=== PATIENT | female | born 1985 | race African-American/Black ===

== ENCOUNTER 2016-07-25 06:17 | Inpatient (IN) | payer OTHER ==
[2016-07-25] MEDS ORDERED: NS 50 ML IV + SPIKE MINIBAG* 50 ML IV ONE (06:34)
[2016-07-25] MEDS ORDERED: ANCEF VIAL 1 GM ONE (06:34)
[2016-07-25] MEDS ORDERED: LR 1000 ML IV 1,000 ML IV ONE (06:34)
[2016-07-25] MEDS ORDERED: DURAMORPH ONE (06:59)
[2016-07-25] MEDS ORDERED: D5 1/2 NS 1000 ML 1,000 ML IV SCH ×2 (07:17→15:17)
[2016-07-25] MEDS ORDERED: ANCEF VIAL 1 GM 1 GM in NS 50 ML IV + SPIKE MINIBAG* 50 ML IV PRN (07:17)
[2016-07-25] MEDS ORDERED: D5 1/2 NS 1000ML W PITOCIN 20 U/L 1,000 ML IV ONE (07:45)
[2016-07-25] MEDS ORDERED: NS IRRIGATION 1000 ML 1,000 ML IR ONE (08:07)
[2016-07-25] MEDS ORDERED: DILAUDID INJ ONE (08:41)
[2016-07-25] MEDS: DILAUDID INJ IVP PRN ×2 (08:42→08:50)
[2016-07-25] MEDS ORDERED: REGLAN INJ 10 MG VIAL IVP PRN ×2 (08:45→09:00)
[2016-07-25] MEDS ORDERED: BENADRYL INJ 50 MG VIAL IVP PRN ×2 (08:45→09:00)
[2016-07-25] MEDS ORDERED: ZOFRAN INJ 4 MG VIAL IVP PRN ×2 (08:45→09:00)
[2016-07-25] MEDS ORDERED: PHENERGAN INJ 25 MG IVP PRN (08:45)
[2016-07-25] MEDS ORDERED: D5 1/2 NS 1000 ML 1,000 ML with PITOCIN 20 UNITS IV SCH ×2 (09:00)
[2016-07-25] MEDS ORDERED: ADACEL TDaP IM ONE (09:00)
[2016-07-25] MEDS ORDERED: PERCOCET TAB 5/325 MG PO PRN (09:00)
[2016-07-25] MEDS ORDERED: DILAUDID INJ IVP ONE ×2 (09:02→09:07)
[2016-07-25] MEDS ORDERED: EPHEDRINE SULFATE INJ ONE (09:49)
[2016-07-25] MEDS ORDERED: DIPRIVAN VIAL ONE (09:49)
[2016-07-25] MEDS ORDERED: VERSED ONE (09:49)
[2016-07-25] MEDS: PRENATAL PLUS PO SCH (09:52)
[2016-07-25] MEDS: ZANTAC PO SCH ×2 (09:52→20:00)
[2016-07-25] MEDS: TORADOL 30 MG VIAL IVP PRN (15:31)
[2016-07-25] MEDS ORDERED: FERROUS SULFATE PO SCH (17:00)
[2016-07-25] MEDS: FERROUS SULFATE PO SCH (18:27)
[2016-07-25] MEDS: NARCAN INJ IVP PRN (20:00)
[2016-07-26] MEDS: TORADOL 30 MG VIAL IVP PRN (02:21)
[2016-07-26 05:28] LABS: HEMATOCRIT 26.8 % (36.0-47.0)
[2016-07-26] MEDS: NARCAN INJ IVP PRN (07:08)
[2016-07-26] MEDS ORDERED: MOTRIN TAB 800 MG PO PRN (07:52)
[2016-07-26] MEDS: FERROUS SULFATE PO SCH ×2 (09:20→17:29)
[2016-07-26] MEDS: ZANTAC PO SCH ×2 (09:20→20:16)
[2016-07-26] MEDS: COLACE CAP 100 MG PO SCH ×2 (09:20→20:16)
[2016-07-26] MEDS: PRENATAL PLUS PO SCH (09:20)
[2016-07-26] MEDS: PERCOCET TAB 5/325 MG PO PRN ×2 (12:10→19:43)
[2016-07-26] MEDS: MYLICON TAB 80 MG CHEW PO PRN (12:10)
[2016-07-26] MEDS: BACTROBAN OINT TOP SCH ×2 (14:18→23:41)
[2016-07-26] MEDS: BENADRYL CAP/TAB 25 MG PO PRN ×2 (15:36→19:43)
[2016-07-27] MEDS: MYLICON TAB 80 MG CHEW PO PRN (02:33)
[2016-07-27] MEDS: PERCOCET TAB 5/325 MG PO PRN ×2 (02:33→09:01)
[2016-07-27] MEDS: BENADRYL CAP/TAB 25 MG PO PRN (04:59)
[2016-07-27] MEDS: BACTROBAN OINT TOP SCH (04:59)
[2016-07-27] MEDS ORDERED: DEPO-PROVERA CONTRACEPTIVE INJ IM ONE (07:18)
[2016-07-27 08:16] VITALS: BP 123/82
[2016-07-27] MEDS: FERROUS SULFATE PO SCH (09:00)
[2016-07-27] MEDS: PRENATAL PLUS PO SCH (09:00)
[2016-07-27] MEDS: COLACE CAP 100 MG PO SCH (09:01)
[2016-07-27] MEDS: ZANTAC PO SCH (09:01)
== END 2016-07-27 13:40 | disposition home or self-care (01) | DRG 983 ==
LOC: LD 06:17 → MED/SURG 09:12
PROVIDERS: ADMIT Specialist; ATTEND Specialist
PROC: 3E0234Z Introduction of Serum, Toxoid and Vaccine into Muscle, Percutaneous Approach (ICD-10-PCS; 2016-07-25)
PROC: 10D00Z1 Extraction of Products of Conception, Low, Open Approach (ICD-10-PCS; principal; 2016-07-25 07:30)
DX: N85.8 Other specified noninflammatory disorders of uterus (principal); Z37.0 Single live birth; O34.211 Maternal care for low transverse scar from previous cesarean delivery; O40.3XX0 Polyhydramnios, third trimester, not applicable or unspecified; O99.02 Anemia complicating childbirth; O99.824 Streptococcus B carrier state complicating childbirth; R51 Headache; Z3A.38 38 weeks gestation of pregnancy; B95.1 Streptococcus, group B, as the cause of diseases classified elsewhere; Z23 Encounter for immunization; D50.8 Other iron deficiency anemias
CPT/HCPCS: 36415; 85014; 85018; A4216; A4222; S0197; J0690; J1050; J1170; J1200; J1885; J2250; J2310; J2405; J3490; J7120

== ENCOUNTER 2017-01-25 14:29 | Emergency (ER) | payer SELFPAY ==
[2017-01-25 14:35] VITALS: BP 117/77; BMI 30.2
[2017-01-25] MEDS ORDERED: TYLENOL #3 TAB (W/CODEINE) PO ONE ×2 (15:55→15:56)
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
== END 2017-01-25 16:18 | disposition home or self-care (01) ==
LOC: ER 15:01
DX: L02.93 Carbuncle, unspecified (principal)
CPT/HCPCS: 99282

== ENCOUNTER 2017-05-16 21:50 | Emergency (ER) | payer SELFPAY ==
[2017-05-16 21:58] VITALS: BP 121/90; BMI 35.1
--- NOTE | 2017-05-16 22:04 | DR.GENAD ---
HPI - PCP Primary Care Physician: nfd - Complaint/Symptoms Chief Complaint Doctors Comments: Patient admits to vaginal bleeding for 2.5 weeks has not seen a physician. She denies or recent . Chief Complaint:: pt states" I been bleeding for 2 and a half weeks and i hurt in my vagina and the bottom of my stomach hurts" - Source History Provided: Patient - Mode of Arrival Mode of Arrival: Ambulatory - Timing Onset of Chief Complaint: 05/04/17 PMH - PMH Past Medical History: Yes Past Medical History: Hypertension Past Surgical History: Yes Surgical History: Past Surgical History Comment: skin graft from [place] waist down - Family History History of Family Medical Conditions: No (adopted) Family Medical History: Diabetes Mellitus, Hypertension - Social History Type of Tobacco Use: Cigarettes Does any household member use tobacco: No Alcohol Use: None Do you use any recreational Drugs:: No Lives With: Family Lives Where: Home - infectious screening In the last 2 months have you had wt loss of >10#?: NO Have you had fever, night sweats or hemotysis?: No Have you traveled outside the country in the last 6 months?: No Isolation: Standard ROS - Review of Systems Eyes: No Symptoms Reported ENTM: No Symptoms Reported Respiratoy: No Symptoms Reported Cardiovascular: No Symptoms Reported Gastrointestinal/Abdominal: No Symptoms Reported Genitourinary: No Symptoms Reported Neurological: No Symptoms Reported Musculoskeletal: No Symptoms Reported Integumentary: No Symptoms Reported Hematologic/Lymphatic: No Symptoms Reported Endocrine: No Symptoms Reported Psychiatric: No Symptoms Reported All Other Systems: Reviewed and Negative PE - Vital Signs Vitals: Temperature 99.1 F Pulse Rate 91 Respiratory Rate 18 Blood Pressure [Right Arm] 123/82 Blood Pressure [Left Arm] 125/69 Blood Pressure 121/90 O2 Sat by Pulse Oximetry 100 - General Limitations: No Limitations General Appearance: Alert, In No Apparent Distress - Head Head Exam: Normal Inspection, Atraumatic - Eyes Eye exam: Normal Appearance, PERRL, EOMI - ENT ENT Exam: Normal Exam, Normal Oropharynx External Ear Exam: Normal External Inspection TM/Canal Exam: Bilateral Normal Nose Exam: Normal Nose Exam Mouth Exam: Normal Inspection Throat Exam: Normal Inspection - Neck Neck Exam: Normal Inspection, Full ROM - Chest Chest Inspection: Normal Inspection - Respiratory Respiratory Exam: Normal Lung Sounds Bilat Respiratory Exam: Bilateral Clear to Auscultation - Cardiovascular Cardiovascular Exam: Regular Rate, Normal Rhythm - Abdominal Exam Abdominal Exam: Normal Inspection, Normal Bowel Sounds Abdominal Tenderness: negative: RUQ, RLQ, LUQ, LLQ, Epigastrium, Suprapubic, Diffuse, Mild, Moderate, Severe, Other - Extremities Extremities Exam: Normal Inspection, Full ROM - Back Back Exam: Normal Inspection, Full ROM - Neurologic Neurological Exam: Alert, Oriented X3, CN II-XII Intact - Psychiatric Psychiatric Exam: Normal Affect, Normal Mood - Skin Skin Exam: Warm, Dry, Intact ROR - Labs Reviewed Result Diagrams: 05/16/17 22:05 05/16/17 22:05 Laboratory: WBC 8.3 X10^3/uL (3.6-10.0) 05/16/17 22:05 RBC 4.19 X10^6/uL (3.5-5.4) 05/16/17 22:05 Hgb 11.6 g/dL (12.0-16.0) L 05/16/17 22:05 Hct 35.4 % (36.0-47.0) L 05/16/17 22:05 MCV 84.4 fL (80.0-100.0) 05/16/17 22:05 MCH 27.7 pg (27.0-34.0) 05/16/17 22:05 MCHC 32.8 g/dL (33.0-35.0) L 05/16/17 22:05 RDW 14.9 % (11.6-16.5) 05/16/17 22:05 Plt Count 310 X10^3/uL (150.0-450.0) 05/16/17 22:05 MPV 8.5 fL (7.4-11.0) 05/16/17 22:05 Neut % 56.7 % (42.0-75.0) 05/16/17 22:05 Lymph % 30.2 % (21.0-51.0) 05/16/17 22:05 [place] % 6.2 % (0.0-13.0) 05/16/17 22:05 Eos % 5.7 % (0.9-2.9) H 05/16/17 22:05 Baso % 1.2 % (0.2-1.0) H 05/16/17 22:05 Neut # 4.7 x10^3/uL (2.2-4.8) 05/16/17 22:05 Lymph # 2.5 X10^3/uL (1.3-2.9) 05/16/17 22:05 [place] # 0.5 x10^3/uL (0.3-0.8) 05/16/17 22:05 Eos # 0.5 x10^3/uL (0.0-0.2) H 05/16/17 22:05 Baso # 0.1 X10^3/uL (0.0-0.1) 05/16/17 22:05 Absolute Nucleated RBC 0.1 /100WBC 05/16/17 22:05 Sodium 139 mmol/L (136-145) 05/16/17 22:05 Corrected Sodium TNP 05/16/17 22:05 Potassium 4.1 mmol/L (3.5-5.1) 05/16/17 22:05 Chloride 107 mmol/L (98-107) 05/16/17 22:05 Carbon Dioxide 25.0 mmol/L (21-32) 05/16/17 22:05 BUN 14 mg/dL (7-18) 05/16/17 22:05 Creatinine 0.58 mg/dL (0.55-1.02) 05/16/17 22:05 Est GFR (MDRD) Af Amer > 60 (>60) 05/16/17 22:05 Est GFR (MDRD) Non-Af > 60 (>60) 05/16/17 22:05 Glucose 103 mg/dL (65-99) H 05/16/17 22:05 Calcium 8.5 mg/dL (8.5-10.1) 05/16/17 22:05 Corrected Calcium TNP 05/16/17 22:05 Total Bilirubin 0.20 mg/dL (0.2-1.0) 05/16/17 22:05 AST 9 Units/L (15-37) L 05/16/17 22:05 ALT 17 Units/L (12-78) 05/16/17 22:05 Alkaline Phosphatase 81 Units/L (46-116) 05/16/17 22:05 Total Protein 7.5 g/dL (6.4-8.2) 05/16/17 22:05 Albumin 3.5 g/dL (3.4-5.0) 05/16/17 22: Globulin 4.0 g/dL (2.5-4.5) 05/16/17 22: Albumin/Globulin Ratio 0.9 Ratio (1.1-2.1) L 05/16/17 22: HCG, Qual Negative <10 mIU/mL 05/16/17 22: Specimen Type Clean catch urine 05/16/17: Urine Color Bloody (YELLOW) 05/16/17: Urine Appearance Cloudy (CLEAR) 05/16/17: Urine pH 7.0 (5.0 - 8.0) 05/16/17: Ur Specific [place] 1.010 (1.000-1.030) 05/16/17: Urine Protein 2+ (NEGATIVE) 05/16/17: Urine Glucose (UA) Negative (NEGATIVE) 05/16/17: Urine Ketones Negative (NEGATIVE) 05/16/17: Urine Occult Blood 5+ (NEGATIVE) 05/16/17: Urine Nitrite Negative (NEGATIVE) 05/16/17: Urine Bilirubin Negative (NEGATIVE) 05/16/17: Urine Urobilinogen 1+ (NORMAL) 05/16/17: Ur Leukocyte Esterase 1+ (NEGATIVE) 05/16/17 22:33 Urine RBC Tntc /HPF (NEGATIVE) 05/16/17 22:33 Urine WBC 0-2 /HPF (NEGATIVE) 05/16/17:33 Ur Squamous Epith Cells Many /HPF (NEGATIVE) 05/16/17: Urine Bacteria Trace /HPF (NEGATIVE) 05/16/17 22: Ur Culture Indicated? No/not indicated 05/16/17:33 - XRAY XRAY Interpreted by: Radiologist (Ct: Abd/Pel:No acute skeletal abnormality identified. Evaluation is limited w/o contrast.Small calcified gallstone is noted, without evidence for cholecystitis. Within noncontrast limitations, the liver, spleen,stomach,duodenum,pancreas, adrenals and kidneys are unremarkable, No ureteral stones are identified. A few scattered noninflamed distal colonic diverticula are noted. No significant bowel thickening or dilatation of the lower GI tract is observed. The appendix is normal. The uterus and ovaries are noted. No large pelvic mass or collection identified. The urinary bladder and rectum are unremarkable. No free fluid or adenopathy identified; Impression : No etiology for patient's symptoms identified. Consider pelvic ultrasound for further evaluation of the patients symptoms. Diverticulosis, Cholelithiasis) - Diagnosis Discharge Problem: DUB (dysfunctional uterine bleeding) Diverticulosis Qualifiers: Diverticulosis site: diverticulosis of small intestine Diverticulosis bleeding : diverticulosis without bleeding Qualified Code(s): K57.10 - Diverticulosis of small intestine without perforation or abscess without bleeding Cholelithiasis Qualifiers: Cholelithiasis location: gallbladder Cholecystitis presence: without cholecystitis Biliary obstruction: without biliary obstruction Qualified Code(s) : K80.20 - Calculus of gallbladder without cholecystitis without obstruction - Discharge Plan Condition: Stable - Follow ups/Referrals Follow ups/Referrals: NFD,None [Primary Care Provider] - 3 days - Instructions
[2017-05-16 22:23] LABS: BASOPHILS # (AUTO) 0.1 X10^3/uL (0.0-0.1); BASOPHILS % (AUTO) 1.2 % (0.2-1.0); EOSINOPHILS # (AUTO) 0.5 x10^3/uL (0.0-0.2); EOSINOPHILS % (AUTO) 5.7 % (0.9-2.9); HEMATOCRIT 35.4 % (36.0-47.0); HEMOGLOBIN 11.6 g/dL (12.0-16.0); LYMPHOCYTES # (AUTO) 2.5 X10^3/uL (1.3-2.9); LYMPHOCYTES % (AUTO) 30.2 % (21.0-51.0); MEAN CORPUSCULAR HEMOGLOBIN 27.7 pg (27.0-34.0); MEAN CORPUSCULAR HGB CONC 32.8 g/dL (33.0-35.0); MEAN CORPUSCULAR VOLUME 84.4 fL (80.0-100.0); MEAN PLATELET VOLUME 8.5 fL (7.4-11.0); MONOCYTES # (AUTO) 0.5 x10^3/uL (0.3-0.8); MONOCYTES % (AUTO) 6.2 % (0.0-13.0); NEUTROPHILS # (AUTO) 4.7 x10^3/uL (2.2-4.8); NEUTROPHILS % (AUTO) 56.7 % (42.0-75.0); PLATELET COUNT 310 X10^3/uL (150.0-450.0); RED BLOOD COUNT 4.19 X10^6/uL (3.5-5.4); RED CELL DISTRIBUTION WIDTH 14.9 % (11.6-16.5); WHITE BLOOD COUNT 8.3 X10^3/uL (3.6-10.0)
[2017-05-16 22:33] LABS: ALANINE AMINOTRANSFERASE 17 Units/L (12-78); ALBUMIN 3.5 g/dL (3.4-5.0); ALKALINE PHOSPHATASE 81 Units/L (46-116); ASPARTATE AMINO TRANSFERASE 9 Units/L (15-37); BLOOD UREA NITROGEN 14 mg/dL (7-18); CALCIUM 8.5 mg/dL (8.5-10.1); CHLORIDE 107 mmol/L (98-107); CREATININE 0.58 mg/dL (0.55-1.02); SODIUM 139 mmol/L (136-145); TOTAL PROTEIN 7.5 g/dL (6.4-8.2); eGFR BLACK RACES > 60 (>60); eGFR NON BLACK RACES > 60 (>60)
[2017-05-16 22:38] LABS: SERUM PREGNANCY TEST, QUAL NEGATIVE <10 mIU/mL
[2017-05-16 22:49] LABS: BILIRUBIN,URINE NEGATIVE (NEGATIVE); BLOOD/HEMOGLOBIN,URINE 5+ (NEGATIVE); GLUCOSE, URINE NEGATIVE (NEGATIVE); KETONES,URINE NEGATIVE (NEGATIVE); LEUKOCYTE ESTERASE ,URINE 1+ (NEGATIVE); NITRITES,URINE NEGATIVE (NEGATIVE); PROTEIN,URINE 2+ (NEGATIVE); UROBILINOGEN,URINE 1+ (NORMAL)
[2017-05-16 22:52] LABS: APPEARANCE,URINE CLOUDY (CLEAR); COLOR,URINE BLOODY (YELLOW); RBC,URINE TNTC /HPF (NEGATIVE)
[2017-05-16 22:53] LABS: BACTERIA,URINE TRACE /HPF (NEGATIVE); SQUAMOUS EPITHELIAL CELL,UR MANY /HPF (NEGATIVE)
[2017-05-16] MEDS ORDERED: MORPHINE SULFATE INJ 4 MG IVP ONE (23:01)
[2017-05-16] MEDS ORDERED: MORPHINE SULFATE INJ 4 MG ONE (23:02)
[2017-05-16] MEDS ORDERED: NS 100 ML IV 100 ML IV ONE (23:10)
[2017-05-16] MEDS ORDERED: MORPHINE SULFATE INJ 4 MG IM ONE (23:42)
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
--- NOTE | 2017-05-17 02:01 | US ---
Pelvic ultrasound Indication: Abdominal pain, vaginal bleeding Comparison: CT abdomen and pelvis from the same day. No previous pelvic ultrasound available. Technique: Sonographic images of the pelvis were obtained transabdominally. The uterus measures 6.3 x 4.3 x 4.9 cm. The endometrial thickness is 2 mm. Small simple appearing appearing cysts/follicles are noted within both ovaries, within normal limits for patient age. The right ovary measures 2.8 x 2.5 x 3.3 cm in the left ovary measures 3.9 x 2.9 x 2 .9 cm. Doppler flow was demonstrated bilaterally. No pelvic free fluid was visualized. Impression: Essentially unremarkable pelvic ultrasound. Reported By:
== END 2017-05-17 02:36 | disposition home or self-care (01) ==
LOC: ER 21:50
DX: N93.8 Other specified abnormal uterine and vaginal bleeding (principal); K57.10 Diverticulosis of small intestine without perforation or abscess without bleeding; K80.20 Calculus of gallbladder without cholecystitis without obstruction
CPT/HCPCS: 36415; 74176; 76856; 80053; 81001; 84703; 85025; 96372; 99282; 99284; A4222; J2270

== ENCOUNTER 2024-01-08 22:37 | Inpatient (IN) ==
[~2024-01-08 22:37] MED LIST: ZEMURON 50 MG VIAL ONE
[2024-01-08] MEDS ORDERED: NS 1,000 ML IV 1,000 ML ONE ×2 (22:45)
[2024-01-08] MEDS: NS 1,000 ML IV 1,000 ML IV ONE ×2 (22:47→23:44)
[2024-01-08] MEDS ORDERED: AMIDATE INJ 40 MG VIAL ONE (22:50)
[2024-01-08] MEDS ORDERED: QUELICIN (OR ANECTINE) ONE ×2 (22:51→23:18)
[2024-01-08] MEDS ORDERED: VERSED ONE (22:55)
[2024-01-08] MEDS: VERSED IVP ONE ×3 (22:58→23:32)
[2024-01-08] MEDS: QUELICIN (OR ANECTINE) IVP ONE ×2 (22:59→23:20)
[2024-01-08] MEDS ORDERED: NS 250 ML IV 250 ML IV ONE (23:08)
[2024-01-08 23:35] LABS: HEMOGLOBIN 10.8 g/dL (12.0-16.0); MEAN CORPUSCULAR HGB CONC 31.7 g/dL (33.0-35.0); MEAN CORPUSCULAR VOLUME 86.9 fL (80.0-100.0)
[2024-01-08 23:38] LABS: BASOPHILS # (AUTO) 0.1 X10^3/uL (0.0-0.1); BASOPHILS % (AUTO) 0.6 % (0.2-1.0); EOSINOPHILS # (AUTO) 0.2 x10^3/uL (0.0-0.2); HEMATOCRIT 34.1 % (36.0-47.0); LYMPHOCYTES # (AUTO) 6.8 X10^3/uL (1.3-2.9); MEAN CORPUSCULAR HEMOGLOBIN 27.6 pg (27.0-34.0); MEAN PLATELET VOLUME 8.9 fL (7.4-11.0); MONOCYTES # (AUTO) 0.5 x10^3/uL (0.3-0.8); MONOCYTES % (AUTO) 4.3 % (0.0-13.0); NEUTROPHILS # (AUTO) 4.5 x10^3/uL (2.2-4.8); NEUTROPHILS % (AUTO) 37.1 % (42.0-75.0); PLATELET COUNT 302 X10^3/uL (150.0-450.0); RED BLOOD COUNT 3.92 X10^6/uL (3.5-5.4); RED CELL DISTRIBUTION WIDTH 16.8 % (11.6-16.5); WHITE BLOOD COUNT 12.1 X10^3/uL (3.6-10.0)
[2024-01-08 23:39] LABS: ALANINE AMINOTRANSFERASE 14 Units/L (12-78); ALBUMIN 3.4 g/dL (3.4-5.0); ALKALINE PHOSPHATASE 92 Units/L (46-116); ASPARTATE AMINO TRANSFERASE 11 Units/L (15-37); BLOOD UREA NITROGEN 7 mg/dL (7-18); CALCIUM 8.3 mg/dL (8.5-10.1); CHLORIDE 103 mmol/L (98-107); COR NA(FOR HYPERGLY) 141 mmol/L (136-145); CREATININE 1.01 mg/dL (0.55-1.02); GLUCOSE 188 mg/dL (65-99); SODIUM 139 mmol/L (136-145); eGFR NON BLACK RACES > 60 (>60)
[2024-01-08 23:40] LABS: INR 1.17 (0.8-1.3)
[2024-01-08 23:41] LABS: CARBON DIOXIDE 13.9 mmol/L (21-32)
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
[2024-01-09] MEDS: DECADRON INJ ONE (00:08)
[2024-01-09] MEDS: FENTANYL VIAL INJ 100 mcg ONE (00:08)
[2024-01-09] MEDS: ZEMURON 100 MG VIAL ONE (00:08)
[2024-01-09] MEDS: BETADINE SOLN ONE (00:08)
[2024-01-09 00:16] LABS: BILIRUBIN,URINE NEGATIVE (NEGATIVE); BLOOD/HEMOGLOBIN,URINE 1+ (NEGATIVE); GLUCOSE, URINE 3+ (NEGATIVE); KETONES,URINE 1+ (NEGATIVE); LEUKOCYTE ESTERASE ,URINE NEGATIVE (NEGATIVE); NITRITES,URINE NEGATIVE (NEGATIVE); PROTEIN,URINE 4+ (NEGATIVE); UROBILINOGEN,URINE 1+ (NORMAL)
[2024-01-09] MEDS: NS 1,000 ML IV 1,000 ML ONE (00:30)
[2024-01-09 00:42] LABS: APPEARANCE,URINE CLEAR (CLEAR); BACTERIA,URINE TRACE /HPF (NEGATIVE); COLOR,URINE PALE YELLOW (YELLOW); HYALINE CASTS, URINE FEW /LPF (NEGATIVE); RBC,URINE 0-2 /HPF (0-3); SQUAMOUS EPITHELIAL CELL,UR FEW /HPF (NEGATIVE)
[2024-01-09] MEDS: NS 100 ML IV 100 ML ONE (00:45)
[2024-01-09] MEDS: ANCEF VIAL 1 GRAM ONE (00:45)
[2024-01-09] MEDS: BACTROBAN TOPICAL OINT ONE (00:47)
[2024-01-09] MEDS: LR 1,000 ML IV 1,000 ML IV ONE (00:50)
[2024-01-09 00:58] VITALS: O2SAT 100
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
--- NOTE | 2024-01-09 01:07 | RAD ---
PROCEDURE: Chest X-ray 1 View. HISTORY: CENTRAL LINE PLACEMENT ; HTN RICKY . TECHNIQUE: AP view. COMPARISON: January 08 this year. TECHNICAL QUALITY: Satisfactory. FINDINGS: Left internal jugular central venous line placement with the tip in the innominate vein near the midl ine of the chest. Endotracheal tube remains in the right mainstem bronchus and repositioning more pr oximally 6 cm recommended. NG tube off the bottom of the exam previously documented in the stomach. Normal-sized heart. Pneumomediastinum with air present both upper and lower mediastinum. Normal central vascularity. Interval moderate atelectasis left base. No definite pneumothorax or pleural fluid. No acute bony abnormality. Bilateral subcu air involving chest wall and lower neck greatest on the left IMPRESSION: 1. Good right internal jugular central line placement with no definite pneumothorax. 2. Continued low endotracheal tube and repositioning more proximally 6 cm recommended. 3. Increasing atelectasis left base. 4. Bilateral subcutaneous air. THIS IS AN ELECTRONICALLY VERIFIED FINAL REPORT 01/09/2024 1:03 AM - Electronically signed by Filiberto Sarmiento MD
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
[2024-01-09] MEDS ORDERED: HYDROGEN PEROXIDE 3% ONE (01:15)
[2024-01-09] MEDS ORDERED: PRECEDEX 400 MCG/100 ML *PREMIX 400 MCG/100 ML INFUS..BTL IV ONE (01:16)
[2024-01-09] MEDS: PRECEDEX 400 MCG/100 ML *PREMIX 400 MCG/100 ML INFUS..BTL IV PRN (01:31)
[2024-01-09] MEDS: LR 1,000 ML IV 1,000 ML IV SCH (01:31)
[2024-01-09 01:46] LABS: ABG BASE EXCESS -5.9 mmol/L (-2.0-2.0); ABG HCO3 20.2 mmol/L (22-26)
[2024-01-09 01:47] LABS: ABG ALLEN TEST POS
[2024-01-09] MEDS ORDERED: SALINE 3% 15 ML NEB TX ONE ×2 (02:09→03:56)
[2024-01-09] MEDS ORDERED: NS 250 ML IV 25 ML IV PRN (02:19)
[2024-01-09] MEDS ORDERED: DIPRIVAN PREMIX 1 GRAM IV 1,000 MG/100 ML VIAL ONE (02:37)
[2024-01-09] MEDS: DIPRIVAN PREMIX 1 GRAM IV 1,000 MG/100 ML VIAL IV PRN (02:40)
[2024-01-09 02:49] LABS: BASOPHILS # (AUTO) 0.1 X10^3/uL (0.0-0.1); MEAN PLATELET VOLUME 7.9 fL (7.4-11.0)
[2024-01-09 02:51] LABS: BASOPHILS % (AUTO) 0.3 % (0.2-1.0); EOSINOPHILS % (AUTO) 0.1 % (0.9-2.9); HEMOGLOBIN 9.6 g/dL (12.0-16.0); LYMPHOCYTES # (AUTO) 1.5 X10^3/uL (1.3-2.9); LYMPHOCYTES % (AUTO) 6.8 % (21.0-51.0); MEAN CORPUSCULAR HEMOGLOBIN 28.3 pg (27.0-34.0); MEAN CORPUSCULAR VOLUME 85.9 fL (80.0-100.0); MONOCYTES # (AUTO) 0.7 x10^3/uL (0.3-0.8); MONOCYTES % (AUTO) 3.3 % (0.0-13.0); NEUTROPHILS % (AUTO) 89.5 % (42.0-75.0); PLATELET COUNT 206 X10^3/uL (150.0-450.0); RED BLOOD COUNT 3.37 X10^6/uL (3.5-5.4); RED CELL DISTRIBUTION WIDTH 16.1 % (11.6-16.5)
[2024-01-09 02:53] LABS: BLOOD UREA NITROGEN 6 mg/dL (7-18); CALCIUM 6.8 mg/dL (8.5-10.1); CARBON DIOXIDE 24.8 mmol/L (21-32); CHLORIDE 109 mmol/L (98-107); COR NA(FOR HYPERGLY) 143 mmol/L (136-145); CREATININE 0.61 mg/dL (0.55-1.02); GLUCOSE 172 mg/dL (65-99); INR 1.37 (0.8-1.3); POTASSIUM 3.3 mmol/L (3.5-5.1); SODIUM 141 mmol/L (136-145); eGFR NON BLACK RACES > 60 (>60)
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
[2024-01-09 03:02] LABS: BAND NEUTROPHILS % 5 % (0-10); PLATELET MORPHOLOGY COMMENT NORMAL (NORMAL); WHITE BLOOD COUNT 22.4 X10^3/uL (3.6-10.0)
[2024-01-09] MEDS ORDERED: LR 1,000 ML IV 1,000 ML IV ONE (03:36)
[2024-01-09] MEDS: ATIVAN INJ 2 MG VIAL IVP ONE (04:25)
[2024-01-09] MEDS ORDERED: ATIVAN INJ 2 MG VIAL ONE (04:25)
[2024-01-09] MEDS ORDERED: VERSED ONE (04:35)
[2024-01-09] MEDS ORDERED: NS 100 ML IV 100 ML ONE (04:36)
[2024-01-09] MEDS ORDERED: NS 1,000 ML IV 1,000 ML ONE (04:42)
[2024-01-09] MEDS: NS 1,000 ML IV 1,000 ML IV ONE (04:50)
[2024-01-09] MEDS: VERSED 100 MG in NS 100 ML IV 80 ML IV PRN (04:50)
[2024-01-09] MEDS ORDERED: OMNIPAQUE 350 MG/ML ONE (08:06)
[2024-01-09] MEDS: DILAUDID INJ IVP PRN (08:25)
--- NOTE | 2024-01-09 08:36 | DR.UPDATE ---
H&P Update Prescription drug monitoring program results: PDMP was not reviewed H&P Reviewed: Yes Any changes to H&P?: No Patient was examined?: Yes Vital Signs: Temp Pulse Pulse Resp BP BP Pulse Ox 01/09/24 08:28 145/64 01/09/24 08:28 104 H 15 100 01/09/24 08:25 93 H 15 100 01/09/24 08:25 149/70 01/09/24 08:23 145/70 01/09/24 08:23 94 H 15 100 01/09/24 08:20 141/69 01/09/24 08:20 94 H 15 100 01/09/24 08:18 93 H 15 100 01/09/24 08:18 142/68 01/09/24 08:15 139/72 01/09/24 08:15 94 H 15 100 01/09/24 08:13 98 H 13 100 01/09/24 08:13 136/75 01/09/24 08:10 143/79 01/09/24 08:10 101 H 17 100 01/09/24 08:08 144/76 01/09/24 08:08 95 H 15 100 01/09/24 08:05 142/77 01/09/24 08:05 94 H 15 100 01/09/24 08:03 142/72 01/09/24 08:03 94 H 15 100 01/09/24 08:00 143/71 01/09/24 08:00 93 H 15 100 01/09/24 07:58 143/76 01/09/24 07:58 94 H 15 100 01/09/24 07:55 140/70 01/09/24 07:55 93 H 15 100 01/09/24 07:53 138/74 01/09/24 07:53 92 H 15 100 01/09/24 07:50 134/70 01/09/24 07:50 92 H 15 100 01/09/24 07:48 92 H 15 100 01/09/24 07:48 134/73 01/09/24 07:45 131/73 01/09/24 07:45 92 H 15 100 01/09/24 07:43 131/72 01/09/24 07:43 92 H 15 100 01/09/24 07:40 129/68 01/09/24 07:40 92 H 15 100 01/09/24 07:38 128/69 01/09/24 07:38 92 H 15 100 01/09/24 07:35 144/68 100 01/09/24 07:35 92 H 15 100 01/09/24 07:33 143/74 01/09/24 07:33 92 H 15 100 01/09/24 08:25 14 01/09/24 08:25 14 01/09/24 02:40 30 H 01/09/24 05:20 30 H 01/09/24 04:50 34 H 01/09/24 01:39 96.4 F L 108 H 17 137/99 01/09/24 07:30 92 H 15 100 01/09/24 07:30 138/68 01/09/24 07:28 93 H 15 100 01/09/24 07:28 141/72 01/09/24 07:25 92 H 15 100 01/09/24 07:25 141/68 01/09/24 07:23 143/70 01/09/24 07:23 143/70 01/09/24 07:23 92 H 15 100 01/09/24 07:20 92 H 15 100 01/09/24 07:20 136/67 01/09/24 07:20 136/67 01/09/24 07:18 135/72 01/09/24 07:18 135/72 01/09/24 07:18 92 H 15 100 01/09/24 07:15 134/68 01/09/24 07:15 134/68 01/09/24 07:15 93 H 16 100 01/09/24 07:13 92 H 15 100 01/09/24 07:13 137/70 01/09/24 07:13 137/70 01/09/24 07:10 92 H 15 100 01/09/24 07:10 136/65 01/09/24 07:08 91 H 15 100 01/09/24 07:08 134/72 01/09/24 07:05 92 H 15 100 01/09/24 07:05 134/67 01/09/24 07:03 92 H 15 100 01/09/24 07:03 136/68 01/09/24 07:00 131/64 01/09/24 07:00 91 H 15 100 01/09/24 06:58 91 H 15 100 01/09/24 06:58 133/71 01/09/24 06:55 134/66 01/09/24 06:55 92 H 15 100 01/09/24 06:53 92 H 16 100 01/09/24 06:53 133/71 01/09/24 06:50 91 H 15 100 01/09/24 06:50 131/66 01/09/24 06:48 133/68 01/09/24 06:48 91 H 15 100 01/09/24 06:45 91 H 15 100 01/09/24 06:45 133/65 01/09/24 06:43 134/67 01/09/24 06:43 91 H 15 100 01/09/24 06:40 92 H 15 100 01/09/24 06:40 134/68 01/09/24 06:38 91 H 15 100 01/09/24 06:38 138/67 01/09/24 06:35 92 H 15 100 01/09/24 01:42 01/09/24 00:00 196/119 01/09/24 00:00 114 H 24 100 01/08/24 23:55 189/119 01/08/24 23:55 123 H 40 H 94 L 01/08/24 23:50 146/111 01/08/24 23:50 138 H 26 H 100 01/08/24 23:45 141/106 01/08/24 23:45 153 H 25 H 100 01/08/24 23:43 153 H 22 100 01/08/24 23:43 135/100 01/08/24 23:30 145/114 01/08/24 23:30 139 H 52 H 100 01/08/24 23:25 139/112 01/08/24 23:25 152 H 32 H 100 01/08/24 23:20 182/104 01/08/24 23:20 136 H 41 H 01/08/24 23:15 167 H 39 H 01/08/24 23:11 164 H 43 H 52 L 01/08/24 23:11 259/126 01/08/24 23:06 94 H 56 H 83 L 01/08/24 23:06 252/121 01/08/24 23:00 102 H 51 H 100 01/08/24 22:56 105/55 01/08/24 22:56 101 H 43 H 100 01/08/24 22:51 95/54 01/08/24 22:51 108 H 36 H 100 01/08/24 22:50 90/54 01/08/24 22:50 102 H 25 H 100 01/08/24 22:49 87/58 01/08/24 22:49 100 H 24 99 01/08/24 22:48 109 H 99 01/08/24 22:48 88/62 01/08/24 22:47 82/59 01/08/24 22:47 105 H 99 01/08/24 22:45 100 H 100 01/08/24 22:44 121/94 01/08/24 22:44 95 H 99 01/08/24 22:38 95 H 30 H 121/94 98 O2 Del Method FiO2 01/09/24 08:28 01/09/24 08:28 01/09/24 08:25 01/09/24 08:25 01/09/24 08:23 01/09/24 08:23 01/09/24 08:20 01/09/24 08:20 01/09/24 08:18 01/09/24 08:18 01/09/24 08:15 01/09/24 08:15 01/09/24 08:13 01/09/24 08:13 01/09/24 08:10 01/09/24 08:10 01/09/24 08:08 01/09/24 08:08 01/09/24 08:05 01/09/24 08:05 01/09/24 08:03 01/09/24 08:03 01/09/24 08:00 01/09/24 08:00 01/09/24 07:58 01/09/24 07:58 01/09/24 07:55 01/09/24 07:55 01/09/24 07:53 01/09/24 07:53 01/09/24 07:50 01/09/24 07:50 01/09/24 07:48 01/09/24 07:48 01/09/24 07:45 01/09/24 07:45 01/09/24 07:43 01/09/24 07:43 01/09/24 07:40 01/09/24 07:40 01/09/24 07:38 01/09/24 07:38 01/09/24 07:35 Mechanical Ventilator 01/09/24 07:35 01/09/24 07:33 01/09/24 07:33 01/09/24 08:25 01/09/24 08:25 65 01/09/24 02:40 65 01/09/24 05:20 65 01/09/24 04:50 65 01/09/24 01:39 01/09/24 07:30 01/09/24 07:30 01/09/24 07:28 01/09/24 07:28 01/09/24 07:25 01/09/24 07:25 01/09/24 07:23 01/09/24 07:23 01/09/24 07:23 01/09/24 07:20 01/09/24 07:20 01/09/24 07:20 01/09/24 07:18 01/09/24 07:18 01/09/24 07:18 01/09/24 07:15 01/09/24 07:15 01/09/24 07:15 01/09/24 07:13 01/09/24 07:13 01/09/24 07:13 01/09/24 07:10 01/09/24 07:10 01/09/24 07:08 01/09/24 07:08 01/09/24 07:05 01/09/24 07:05 01/09/24 07:03 01/09/24 07:03 01/09/24 07:00 01/09/24 07:00 01/09/24 06:58 01/09/24 06:58 01/09/24 06:55 01/09/24 06:55 01/09/24 06:53 01/09/24 06:53 01/09/24 06:50 01/09/24 06:50 01/09/24 06:48 01/09/24 06:48 01/09/24 06:45 01/09/24 06:45 01/09/24 06:43 01/09/24 06:43 01/09/24 06:40 Mechanical Ventilator 01/09/24 06:40 01/09/24 06:38 Mechanical Ventilator 01/09/24 06:38 01/09/24 06:35 Mechanical Ventilator 01/09/24 01:42 Mechanical Ventilator 65 01/09/24 00:00 01/09/24 00:00 01/08/24 23:55 01/08/24 23:55 01/08/24 23:50 01/08/24 23:50 01/08/24 23:45 01/08/24 23:45 01/08/24 23:43 01/08/24 23:43 01/08/24 23:30 01/08/24 23:30 01/08/24 23:25 01/08/24 23:25 01/08/24 23:20 01/08/24 23:20 01/08/24 23:15 01/08/24 23:11 01/08/24 23:11 01/08/24 23:06 01/08/24 23:06 01/08/24 23:00 01/08/24 22:56 01/08/24 22:56 01/08/24 22:51 01/08/24 22:51 01/08/24 22:50 01/08/24 22:50 01/08/24 22:49 01/08/24 22:49 01/08/24 22:48 01/08/24 22:48 01/08/24 22:47 01/08/24 22:47 01/08/24 22:45 01/08/24 22:44 01/08/24 22:44 01/08/24 22:38 Room Air Procedures (ALL) - Intubation Time out performed: Yes Sedative: none (per rn) paralytic: rocuronium (50mg) Laryngoscope: fiber optic video scope (glidescope 3) ET tube size: 7.5 Tube secured depth: 22 Tube secured location: lips Tube placement confirmation: equal breath sounds bilaterally, no breath sounds over epigastrium, comfirmation by capnometer Patient tolerated procedure: Yes Intubation complications: none, other (intubated per Sadi Estrada CRNA)
[2024-01-09] MEDS ORDERED: ZEMURON 100 MG VIAL ONE (08:49)
[2024-01-09] MEDS ORDERED: NS IRRIGATION* 500 ML IR ONE (09:11)
[2024-01-09 09:19] LABS: BASOPHILS % (AUTO) 0.2 % (0.2-1.0); HEMATOCRIT 27.7 % (36.0-47.0); HEMOGLOBIN 9.1 g/dL (12.0-16.0); LYMPHOCYTES # (AUTO) 1.1 X10^3/uL (1.3-2.9); LYMPHOCYTES % (AUTO) 7.5 % (21.0-51.0); MEAN CORPUSCULAR HEMOGLOBIN 28.3 pg (27.0-34.0); MEAN CORPUSCULAR HGB CONC 32.7 g/dL (33.0-35.0); MEAN CORPUSCULAR VOLUME 86.6 fL (80.0-100.0); MEAN PLATELET VOLUME 7.9 fL (7.4-11.0); MONOCYTES # (AUTO) 0.7 x10^3/uL (0.3-0.8); MONOCYTES % (AUTO) 4.6 % (0.0-13.0); NEUTROPHILS # (AUTO) 12.8 x10^3/uL (2.2-4.8); NEUTROPHILS % (AUTO) 87.7 % (42.0-75.0); PLATELET COUNT 127 X10^3/uL (150.0-450.0); WHITE BLOOD COUNT 14.6 X10^3/uL (3.6-10.0)
[2024-01-09 09:29] VITALS: BMI 32.3
[2024-01-09 09:31] LABS: BLOOD UREA NITROGEN 6 mg/dL (7-18); CALCIUM 7.2 mg/dL (8.5-10.1); CARBON DIOXIDE 21.3 mmol/L (21-32); CHLORIDE 109 mmol/L (98-107); CREATININE 0.58 mg/dL (0.55-1.02); GLUCOSE 108 mg/dL (65-99); POTASSIUM 3.6 mmol/L (3.5-5.1); SODIUM 141 mmol/L (136-145); eGFR NON BLACK RACES > 60 (>60)
[2024-01-09] MEDS: PROTONIX INJ 40 MG VIAL IVP SCH (10:00)
--- NOTE | 2024-01-09 10:20 | RAD ---
EXAMINATION:CHEST, 1 VIEWHISTORY:INTUBATIOIN ; .COMPARISON STUDY:Chest x-ray 12/31/2023TECHNIQUE:Single portable AP view of the chestFINDINGS:Tip of the endotracheal tube is at the level of the nolan. Left-sided central venous access catheter with distal catheter along the SVC/right pulmonary hilum. Distal portion nasogastric tube partially imaged in the left upper abdomen.The lungs are expanded. Patchy infiltrates in the left lung. No pneumothorax.Nonspecific air within the soft tissues right and left upper chest/neck region.Heart size and pulmonary vascular pattern appear normal. Surgical clips right upper abdomen. Bones appear intact.IMPRESSION:Tip of the endotracheal tube is at the level of the nolan.Air within the soft tissues right and left upper chest/imaged lower neck.Patchy infiltrates in the left lung.THIS IS AN ELECTRONICALLY VERIFIED FINAL REPORT01/09/2024 10:16 AM - Electronically signed by Sally Elkins MD
[2024-01-09] MEDS: LOVENOX INJ 40 MG SYR SC SCH (11:00)
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
[2024-01-09] MEDS ORDERED: KETAMINE HCL ONE (12:08)
[2024-01-09] MEDS ORDERED: ULTANE GAS IN ONE (12:08)
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
[2024-01-09] MEDS ORDERED: BETADINE SOLN ONE (13:19)
[2024-01-09 13:42] VITALS: TEMP 98.7
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
[2024-01-09] MEDS: ZOSYN VIAL 3.375 GRAMS 3.375 G in NS 100 ML IV 100 ML IV SCH (14:02)
[2024-01-09] MEDS: NS 250 ML IV 250 ML IV ONE (14:31)
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
[2024-01-09 15:28] LABS: SERUM PREGNANCY TEST, QUAL NEGATIVE <10 mIU/mL
[2024-01-09 17:24] VITALS: RESP 16
[2024-01-09 18:04] VITALS: BP 176/85; PULSE 105
[2024-01-09] MEDS: XYLOCAINE 1 % (PLAIN) ONE (18:13)
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
--- NOTE | 2024-01-09 18:31 | OR.IMMED ---
IMMEDIATE POST-OP NOTE Immediate Post-Op Note Date of surgery/procedure: 01/09/24 Pre-Op Diagnosis: b/l pneumothoaces identified on CT of chest , not seen on plain film CXR Post-Op Diagnosis: same Procedure: placement bilateral 32 Fr chest tubes Description of Procedure: dictated Surgeon/Farm Planner: Ludmila Findings: as above , post procedure CXR showed good placement of bilateral chest tubes and no pneumothoraces. Estimated Blood Loss: minimal Complications: none Progress Notes: To be transferred to [facility] in [place] per family request .
--- NOTE | 2024-01-09 19:57 | RAD ---
EXAM:CHEST, 1 VIEWHISTORY:bilateral chest tube placement ;COMPARISON:January 09, 2024 at 9:26 a.m.TECHNIQUE:Chest radiographic imaging, AP portable projection, 1 imageFINDINGS:No cardiomegaly.Endotracheal tube tip overlies the distal trachea approximately 1.5-2 cm above the nolan.Left-sided central line tip overlies the mid SVC.Esophagogastric tube courses into the stomach with the distal tip not imaged.Bilateral chest tubes in place with no pneumothorax visualized.Subcutaneous emphysema overlying the upper chest/neck.No focal consolidation.No effusion visualized.No acute osseous abnormality.IMPRESSION:1. No significant interval acute cardiopulmonary changes.2. Support apparatus as described above.THIS IS AN ELECTRONICALLY VERIFIED FINAL REPORT01/09/2024 7:54 PM - Electronically signed by Adam Restrepo MD
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
--- NOTE | 2024-01-16 12:54 | DR.OPNOTE ---
OP NOTE Pre-Op Diagnosis: Bilateral pneumothorax, seen only on the CAT scan and not on Plain films Post-Op Diagnosis: same Procedure Date Date Of Procedure: 01/09/24 Procedure: PROCEDURE: BILATERAL CHEST TUBE PLACEMENT NARRATIVE: The patient was in the ICU on a ventilator with bilateral pneumothoraces, 10% on the left and minimal on the right identified only on CT scan and not on the plain x-rays. She was being transferred by ambulance to [facility] to the trauma service and they requested bilateral chest tube placements. Appropriate permission obtained from the family. The left chest prepped and draped in sterile fashion and the skin underlying the breast on the left side at the 6 intercostal space in the anterior it axillary line was infiltrated with 1% Xylocaine and a 1 inch incision made and dissection carried bluntly with the chest over top of the 6 rib into the chest and then placing a 32 German chest tube and suturing it in position with the 0 silk suture . Dressing applied and the chest tube connected to the chest tube bottle. Identical procedure carried out on the right side. Post procedure chest x-ray show a good placement of the chest tubes with no pneumothorax. Type of Anesthesia: Local (1% Xylocaine, 1 mg IV dilaudid) Findings: as above Type of Fluids Used:: Normal Saline EBL: minimal Hardware: 32 fr chest tubes placed bilaterally Complications:: none Disposition/Condition: Pt. tolerated procedure without difficulty.
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
== END 2024-01-09 18:10 | disposition short-term general hospital (02) | DRG 581 ==
LOC: ER 22:37 → ICU 01-09 00:10
PROVIDERS: ADMIT Surgery; ATTEND Surgery
DX: I10 Essential (primary) hypertension; W45.8XXA Other foreign body or object entering through skin, initial encounter; R79.1 Abnormal coagulation profile; F91.8 Other conduct disorders; Z72.0 Tobacco use; S01.81XA Laceration without foreign body of other part of head, initial encounter; S11.91XA Laceration without foreign body of unspecified part of neck, initial encounter; E87.6 Hypokalemia; S01.02XA Laceration with foreign body of scalp, initial encounter; Z78.1 Physical restraint status